=== PATIENT | female | born 1995 | race Caucasian/White ===

== ENCOUNTER 2019-10-03 08:34 | Emergency (ER) | payer MEDICAID ==
[~2019-10-03] VITALS: Ht 157.5 cm; Wt 72.6 kg
[2019-10-03 08:39] VITALS: BP 137/74
--- NOTE | 2019-10-03 08:40 | NUR ---
24 Y/O F C/O RIGHT SIDED FACE SWELLING, TINGLING AND PAIN 7/10 IN HER EAR AND RIGHT SDIE OF FACE. PATIENT HAS NOT TAKEN ANYTHING FOR PAIN AT HOME. PUPILS ARE PERRLA, NO RIGHT OR LEFT SIDED WEAKNESS. HX: BELLS PALSY NKA
[2019-10-03] MEDS ORDERED: methylPREDNISolone SS 125 MG/2 ML VIAL IM ONE (08:50)
--- NOTE | 2019-10-03 09:11 | NUR ---
PT TO CT AT THIS TIME VIA W/C. PT UNABLE TO PROVIDE UROINE SAMPLE FOR TEST. PT STATES NO CHANCE SHE IS AND SIGNED SCREEN FOR PERFORMING X-RAYS/CT/NM/MRI/STRESS LAB.
[2019-10-03 10:31] VITALS: BP 127/77
--- NOTE | 2019-10-03 10:31 | NUR ---
Patient discharged with v/s stable. Written and verbal after care instructions given and explained. Patient alert, oriented and verbalized understanding of instructions. Ambulatory with steady gait. All questions addressed prior to discharge. ID band removed. Patient advised to follow up with PMD. Rx of prednisone, motrin, and acyclovir given. Patient educated on indication of medication including possible reaction and side effects. Opportunity to ask questions provided and answered.
== END 2019-10-03 10:31 | disposition home or self-care (01) ==
LOC: MED 08:34
DX: G51.0 Bell's palsy (principal)
CPT/HCPCS: 70450; 96372; 99284; J2930

== ENCOUNTER 2024-03-18 18:09 | Emergency (ER) | payer MEDICAID ==
[~2024-03-18] VITALS: Ht 154.9 cm; Wt 78.5 kg
[2024-03-18 18:16] VITALS: BP 104/64; PULSE 95; RESP 18; TEMP 97.6; O2SAT 100
[2024-03-18] MEDS ORDERED: AMOX500C25 PO (19:08)
[2024-03-18] MEDS ORDERED: IBUP-2213 PO (19:08)
[2024-03-18 19:21] VITALS: BP 112/62; PULSE 88; RESP 16; TEMP 98; O2SAT 99
== END 2024-03-18 19:21 | disposition home or self-care (01) ==
LOC: MED 18:09
DX: J03.90 Acute tonsillitis, unspecified (principal); Z79.1 Long term (current) use of non-steroidal anti-inflammatories (NSAID); Z79.2 Long term (current) use of antibiotics
CPT/HCPCS: 87081; 99283